=== PATIENT | female | born 1940 | race Caucasian/White ===

== ENCOUNTER 2016-12-08 10:49 | Emergency (ER) | payer MEDICARE ==
[~2016-12-08] VITALS: Ht 160 cm; Wt 61.0 kg
[2016-12-08 10:50] VITALS: BP 174/78; PULSE 60; RESP 20; TEMP 98.6; O2SAT 94
--- NOTE | 2016-12-08 11:14 | PD ---
Physical Exam Time Seen by Provider: 11:11 Narrative 76yo F c/o fast hear rate today. Hx of fast heart; cannot verify diagnosis. Slowed down after took medications. +SOB and dizziness. Denies chest pain. Called doctor and was told to come to ER for evaluation. Patient seen in triage. Awaiting bed placement. VS reviewed. Data Data Last Documented VS Vital Signs Date Time Temp Pulse Resp B/P Pulse Ox O2 Delivery O2 Flow Rate FiO2 12/08/16 10:50 98.6 60 20 174/78 94 Room Air MDM Supervised Visit with GIBSON: Latesha Womack Dec 08, 2016 11:14
[2016-12-08] MEDS ORDERED: METO25TA3 PO (11:33)
[2016-12-08] MEDS ORDERED: PENT400T PO (11:33)
[2016-12-08] MEDS ORDERED: DEXI60CA2 (11:33)
[2016-12-08] MEDS ORDERED: SODIUM CHLORIDE 0.9% FLUSH 10 ML FLUSH IVF PRN (11:45)
[2016-12-08] MEDS ORDERED: SODIUM CHLORID 0.9% 500 ML INJ 500 ML IV ONE (11:45)
--- NOTE | 2016-12-08 11:47 | PD ---
HPI Chief Complaint: Cardiac Complaint Time Seen by Provider: 11:47 Travel History International Travel<30 days: No Contact w/Intl Traveler<30days: No Traveled to known affect area: No History of Present Illness HPI 76-year-old female with a history of hypertension presents to the emergency department for evaluation of feeling as though her heart was racing, lightheadedness and shortness of breath. The patient states that this morning about 3 hours ago she was sitting down drinking tea when she suddenly felt as over her heart began to race. States that she felt lightheaded and short of breath as well. States that she took her metoprolol and about 30 minutes to an hour later her symptoms are completely resolved. She states that this happened at her multiple times in the past. States that she has worn a Holter monitor and been told that it was normal. She denies any chest pain, headache, nausea, vomiting, diaphoresis, abdominal pain, swelling of the extremities, numbness or tingling, weakness, fever, chills, cough or cold symptoms. She called her PCP after this happened and was told to come to the emergency department. No other complaints. PFSH Past Medical History Cerebrovascular Accident: Yes (HTN ) Diabetes: Yes Patient Takes Glucophage: No (12/08/16 0900) Diminished Hearing: No Hypertension: Yes Tetanus Vaccination: Unknown Influenza Vaccination: Yes ?: Not Past Surgical History Surgical History: No Previous Surgery Hysterectomy: Yes Other Surgery: Yes (hernia sx) Social History Alcohol Use: Yes (occ) Tobacco Use: No Substance Use: No Allergies-Medications (Allergen,Severity, Reaction): Coded Allergies: Penicillin (Verified Allergy, Unknown, 12/08/16) Reported Meds & Prescriptions Reported Meds & Active Scripts Active Reported Spironolactone 50 Mg Tab 50 Mg PO DAILY Oxycodone (Oxycodone HCl) 10 Mg Tab 10 Mg PO DAILY Rosuvastatin (Rosuvastatin Calcium) 10 Mg Tab 10 Mg PO HS Metformin ER (Metformin HCl) 1,000 Mg [place] 1,000 Mg PO DAILY With evening meal Aspirin Low Dose (Aspirin) 81 Mg Chew 81 Mg CHEW DAILY Dexilant (Dexlansoprazole) 60 Mg bp Metoprolol Tartrate 25 Mg Tab 25 Mg PO DAILY Pentoxifylline ER (Pentoxifylline) 400 Mg Tab 400 Mg PO DAILY Review of Systems Except as stated in HPI: all other systems reviewed are Neg Physical Exam Narrative GENERAL: Well-nourished and well-developed pleasant female patient in no acute distress who is nontoxic appearing. SKIN: Warm and dry. HEAD: Normocephalic and atraumatic. EYES: No injection, drainage, or hyphema noted. PERRLA. EOMI. ENT: No nasal drainage noted. Oropharynx is clear. NECK: Supple and the trachea is midline. CARDIOVASCULAR: Regular rate and rhythm. RESPIRATORY: Breath sounds are equal bilaterally with no accessory muscle use, wheezing, rhonchi, or crackles. GASTROINTESTINAL: Abdomen is soft, non-tender, and nondistended. MUSCULOSKELETAL: No obvious deformities, swelling, cyanosis, or ecchymosis is present throughout the upper and lower extremities. Patient has full range of motion without any signs of neurovascular compromise. Strength 5/5 upper and lower extremities equal bilaterally. NEUROLOGICAL: Awake, alert, and oriented. Normal speech and gait. Cranial nerves are grossly intact. Data Data Last Documented VS Vital Signs Date Time Temp Pulse Resp B/P Pulse Ox O2 Delivery O2 Flow Rate FiO2 12/08/16 12:57 54 23 117/54 100 Room Air 12/08/16 10:50 98.6 Orders Electrocardiogram (12/08/16 ) Electrocardiogram (12/08/16 11:44) Complete Blood Count With Diff (12/08/16 11:44) Comprehensive Metabolic Panel (12/08/16 11:44) Magnesium (Mg) (12/08/16 11:44) Urinalysis - C+S If Indicated (12/08/16 11:44) Chest, Single Ap (12/08/16 11:44) Ecg Monitoring (12/08/16 11:44) Iv Access Insert/Monitor (12/08/16 11:44) Oximetry (12/08/16 11:44) Sodium Chloride 0.9% Flush (Ns Flush) (12/08/16 11:45) Sodium Chlorid 0.9% 500 Ml Inj (Ns 500 M (12/08/16 11:45) Labs Laboratory Tests Test 12/08/16 12/08/16 11:55 13:08 White Blood Count 5.6 TH/MM3 Red Blood Count 4.81 MIL/MM3 Hemoglobin 14.3 GM/DL Hematocrit 41.7 % Mean Corpuscular Volume 86.7 FL Mean Corpuscular Hemoglobin 29.8 PG Mean Corpuscular Hemoglobin 34.4 % Concent Red Cell Distribution Width 13.2 % Platelet Count 252 TH/MM3 Mean Platelet Volume 7.4 FL Neutrophils (%) (Auto) 70.9 % Lymphocytes (%) (Auto) 16.6 % Monocytes (%) (Auto) 10.6 % Eosinophils (%) (Auto) 1.2 % Basophils (%) (Auto) 0.7 % Neutrophils # (Auto) 4.0 TH/MM3 Lymphocytes # (Auto) 0.9 TH/MM3 Monocytes # (Auto) 0.6 TH/MM3 Eosinophils # (Auto) 0.1 TH/MM3 Basophils # (Auto) 0.0 TH/MM3 CBC Comment DIFF FINAL Differential Comment Sodium Level 139 MEQ/L Potassium Level 4.2 MEQ/L Chloride Level 102 MEQ/L Carbon Dioxide Level 29.6 MEQ/L Anion Gap 7 MEQ/L Blood Urea Nitrogen 14 MG/DL Creatinine 0.88 MG/DL Estimat Glomerular Filtration 62 ML/MIN Rate Random Glucose 93 MG/DL Calcium Level 9.6 MG/DL Magnesium Level 1.8 MG/DL Total Bilirubin 0.3 MG/DL Aspartate Amino Transf 20 U/L (AST/SGOT) Alanine Aminotransferase 17 U/L (ALT/SGPT) Alkaline Phosphatase 77 U/L Total Protein 7.1 GM/DL Albumin 3.4 GM/DL Urine Color YELLOW Urine Turbidity CLEAR Urine pH 5.5 Urine Specific [place] 1.024 Urine Protein TRACE mg/dL Urine Glucose (UA) NEG mg/dL Urine Ketones NEG mg/dL Urine Occult Blood NEG Urine Nitrite NEG Urine Bilirubin NEG Urine Urobilinogen LESS THAN 2.0 MG/DL Urine Leukocyte Esterase LARGE Urine RBC 2 /hpf Urine WBC 5 /hpf Urine Squamous Epithelial 2 /hpf Cells Urine Mucus FEW /lpf Microscopic Urinalysis Comment CULT NOT INDICATED MDM Medical Decision Making Medical Screen Exam Complete: Yes Emergency Medical Condition: Yes Differential Diagnosis Paroxysmal atrial fibrillation versus palpitations versus anxiety versus electrolyte abnormality Narrative Course 76-year-old female presents to the emergency department for evaluation of episode of feeling as though her heart was racing with lightheadedness and shortness of breath. Patient is afebrile, vital signs are stable. Her symptoms were resolved with taking her beta eleni. EKG shows sinus bradycardia with ventricular rate of 54 bpm, no acute ST elevations or depressions. Physical examination is essentially unremarkable. IV access is obtained, labs were drawn and sent. Patient is placed on cardiac telemetry and pulse oximetry monitoring. CBC is unremarkable. CMP is unremarkable. Urinalysis is unremarkable. Chest x-ray is negative. Labs and imaging are reassuring. Patient has remained stable and without complaint while here in the emergency department. I discussed with the patient that she may be experiencing some paroxysmal atrial fibrillation or another arrhythmia as this has happened to her previously. I advised her to follow up as an outpatient with her primary care physician to discuss possibly wearing a Holter monitor again and discussing anticoagulation. Patient verbalizes understanding and agreement with treatment plan. I discussed the case with my attending physician Dr. Rico who is aware of the patients history, physical examination findings, and treatment plan. Diagnosis Primary Impression: Rapid palpitations Referrals: Primary Care Physician Patient Instructions: General Instructions, Palpitations (ED) Additional Instructions: Follow-up with your Primary Care Physician. Return to the ED for any acute worsening of symptoms. Med/Other Pt SpecificInfo: No Change to Meds Disposition: 01 DISCHARGE HOME Condition: Stable Latesha Beltran Dec 08, 2016 11:47
[2016-12-08 12:02] VITALS: O2SAT 98
[2016-12-08] MEDS ORDERED: METF-382 PO (12:08)
[2016-12-08] MEDS ORDERED: ASPI81CH37 CHEW (12:08)
[2016-12-08] MEDS ORDERED: ROSU1TAB6 PO (12:08)
[2016-12-08] MEDS ORDERED: OXYC-395 PO (12:08)
[2016-12-08] MEDS ORDERED: SPIR50TA PO (12:08)
--- NOTE | 2016-12-08 12:11 | RADRPT ---
EXAM DATE/TIME: 12/08/2016 11:44 [facility] COMPARISON: No previous studies available for comparison. INDICATIONS : Chest discomfort; palpitations today. MEDICAL HISTORY : Hypertension. Diabetes mellitus type II. SURGICAL HISTORY : None. ENCOUNTER: Initial ACUITY: 1 day PAIN SCORE: 10 LOCATION: Bilateral chest FINDINGS: Portable AP view of the chest demonstrates a normal-sized cardiac silhouette. No effusion, consolidat ion, or pneumothorax is visualized. Calcified granulomas are present in the right midlung zone and le ft upper lung zone. The bones and soft tissues demonstrate no acute abnormality. There has been prior reverse right shoulder arthroplasty. CONCLUSION: No acute cardiopulmonary abnormality is identified. Morro Santos MD on December 08, 2016 at 12:08 Board Certified Radiologist. This report was verified electronically.
[2016-12-08 12:12] LABS: BASOPHIL % 0.7 % (0.0-2.0); EOSINOPHIL # 0.1 TH/MM3 (0-0.4); EOSINOPHIL % 1.2 % (0.0-4.0); HEMATOCRIT 41.7 % (35.0-46.0); HEMO FLAGS DIFF FINAL; LYMPH % 16.6 % (9.0-44.0); LYMPHOCYTE # 0.9 TH/MM3 (1.0-4.8); MEAN CELL VOLUME 86.7 FL (80.0-100.0); MEAN CORPUSCULAR HEMOGLOBIN 29.8 PG (27.0-34.0); MEAN CORPUSCULAR HGB CONC 34.4 % (32.0-36.0); MONO % 10.6 % (0.0-8.0); NEUT % 70.9 % (16.0-70.0); PLATELET COUNT 252 TH/MM3 (150-450); RED BLOOD COUNT 4.81 MIL/MM3 (4.00-5.30); RED CELL DISTRIBUTION WIDTH 13.2 % (11.6-17.2); WHITE BLOOD COUNT 5.6 TH/MM3 (4.0-11.0)
[2016-12-08 12:34] LABS: ALKALINE PHOSPHATASE 77 U/L (45-117); TOTAL BILIRUBIN ADULT 0.3 MG/DL (0.2-1.0)
[2016-12-08 12:38] LABS: ALT (GPT) 17 U/L (10-53); ANION GAP 7 MEQ/L (5-15); AST (GOT) 20 U/L (15-37); BICARBONATE 29.6 MEQ/L (21.0-32.0); BLOOD UREA NITROGEN 14 MG/DL (7-18); CHLORIDE 102 MEQ/L (98-107); GLOMERULAR FILTRATION RATE 62 ML/MIN (>89); MAGNESIUM 1.8 MG/DL (1.5-2.5); POTASSIUM 4.2 MEQ/L (3.5-5.1); SODIUM (NA) 139 MEQ/L (136-145)
[2016-12-08 12:57] VITALS: BP 117/54; PULSE 54; RESP 23; O2SAT 100
[2016-12-08 13:22] LABS: BLOOD, URINE NEG (NEG); COMMENT (UR) CULT NOT INDICATED; CULTURE IF INDICATED CULT NOT INDICATED; GLUCOSE,URINE NEG (NEG); KETONE, URINE NEG (NEG); MUCUS URINE FEW /lpf (OCC); NITRITE,URINE NEG (NEG); PH, URINE 5.5 (5.0-8.5); SQUAMOUS EPITHELIAL CELL URINE 2 /hpf (0-5); URINE COLOR YELLOW (YELLW/STRAW)
--- NOTE | 2016-12-09 16:50 | EKG ---
Date Performed: 12/08/2016 Time Performed: 12:04:33 PTAGE: 76 years EKG: SINUS BRADYCARDIA BORDERLINE ECG NO PREVIOUS TRACING DOCTOR: Chalino Orozco Interpretating Date/Time 12/09/2016 16:47:59
== END 2016-12-08 14:12 | disposition home or self-care (01) ==
LOC: NEPE 10:49
DX: R00.2 Palpitations (principal); R42 Dizziness and giddiness; R06.02 Shortness of breath; R00.1 Bradycardia, unspecified; I10 Essential (primary) hypertension; E11.9 Type 2 diabetes mellitus without complications; Z79.899 Other long term (current) drug therapy; Z79.82 Long term (current) use of aspirin
CPT/HCPCS: 71010; 80053; 81001; 83735; 85025; 93005; 96360; 99285; J7040

== ENCOUNTER 2017-04-10 09:17 | Emergency (ER) | payer MEDICARE ==
[~2017-04-10] VITALS: Ht 160 cm; Wt 60.0 kg
[~2017-04-10 09:17] MED LIST: ASPI81CH6 CHEW; DEXI60CA3; METF-382 PO; METO25TA3 PO; OXYC-395 PO; PENT400T PO; ROSU1TAB6 PO; SPIR50TA PO
[2017-04-10] MEDS ORDERED: IOHEXOL 350 MG/ML 10 ML VIAL (for RAD DIAG) IVCONTRAST ONE (09:18)
[2017-04-10 09:19] VITALS: BP 131/94; PULSE 84; RESP 13; TEMP 98.1; O2SAT 97
[2017-04-10 09:24] VITALS: BP 117/69; TEMP 98.1; O2SAT 100
[2017-04-10 09:46] LABS: BACTERIA, URINE RARE /hpf; BLOOD, URINE NEG (NEG); COMMENT (UR) CULT NOT INDICATED; CULTURE IF INDICATED CULT NOT INDICATED; GLUCOSE,URINE NEG (NEG); KETONE, URINE NEG (NEG); MUCUS URINE FEW /lpf (OCC); NITRITE,URINE NEG (NEG); PH, URINE 5.5 (5.0-8.5); SQUAMOUS EPITHELIAL CELL URINE 1 /hpf (0-5); TRANSITIONAL EPI CELLS, URINE <1 /hpf; URINE COLOR YELLOW (YELLW/STRAW)
--- NOTE | 2017-04-10 10:07 | PD ---
HPI Chief Complaint: Complaint Time Seen by Provider: 10:03 Travel History International Travel<30 days: No Contact w/Intl Traveler<30days: No Traveled to known affect area: No History of Present Illness HPI 76-year-old female complains of low abdominal and pelvic discomfort and urinary frequency. Patient states that the symptoms started this about 6 months ago and got worse recently. Patient was seen by personal physician this week and was given prescription for Bactrim DS. Patient states that she had the rash for Bactrim DS. Patient was advised by her physician to stop Bactrim DS and started on Macrodantin. Patient states that she is to have discomfort pressure pain lower abdomen pelvic area and urinary frequency. Patient denies any dysuria. Patient denies any back pain or fever chills. Patient denies any vaginal discharge. Patient states that she has intermittent nausea vomiting. Patient denies any headache. Patient denies any chest pain or shortness of breath. PFSH Past Medical History Arthritis: Yes (CHRONIC PAIN R/T R. SHOULDER) Cerebrovascular Accident: Yes (HTN ) Diabetes: Yes Patient Takes Glucophage: Yes (04/10/17) Diminished Hearing: No Hypertension: Yes Insomnia: Yes Tetanus Vaccination: Unknown Influenza Vaccination: Yes ?: Not : 2 Para: 2 Miscarriage: 0 : 0 Past Surgical History Gynecologic Surgery: Yes (HYSTERECTOMY) Hysterectomy: Yes Other Surgery: Yes (HIATAL HERNIA REPAIR) Social History Alcohol Use: Yes (RARELY) Tobacco Use: No Substance Use: No Allergies-Medications (Allergen,Severity, Reaction): Coded Allergies: Sulfa (Sulfonamide Antibiotics) (Verified Allergy, Unknown, RASH/ITCHING, 04/10/17) penicillin G (Unverified Allergy, Unknown, 01/27/17) nitrofurantoin (Verified Adverse Reaction, Intermediate, VOMITING, ) Reported Meds & Prescriptions Reported Meds & Active Scripts Active Reported Spironolactone 50 Mg Tab 50 Mg PO DAILY Oxycodone (Oxycodone HCl) 10 Mg Tab 10 Mg PO DAILY Rosuvastatin (Rosuvastatin Calcium) 10 Mg Tab 10 Mg PO HS Metformin ER (Metformin HCl) 1,000 Mg [place] 1,000 Mg PO DAILY With evening meal Aspirin Low Dose (Aspirin) 81 Mg Chew 81 Mg CHEW DAILY Dexilant (Dexlansoprazole) 60 Mg Cap.dr.bp Metoprolol Tartrate 25 Mg Tab 25 Mg PO DAILY Pentoxifylline ER (Pentoxifylline) 400 Mg Tab 400 Mg PO DAILY Review of Systems General / Constitutional: No: Fever Eyes: No: Visual changes HENT: No: Headaches Cardiovascular: No: Chest Pain or Discomfort Respiratory: No: Shortness of Breath Gastrointestinal: Positive: Abdominal Pain Genitourinary: Positive: Frequency, No: Dysuria Musculoskeletal: No: Pain Skin: No Rash Neurologic: No: Weakness Psychiatric: No: Depression Endocrine: No: Polydipsia Hematologic/Lymphatic: No: Easy Bruising Physical Exam Narrative GENERAL: Well-nourished, well-developed patient. SKIN: Focused skin assessment warm/dry. HEAD: Normocephalic. EYES: No scleral icterus. No injection or drainage. NECK: Supple, trachea midline. No JVD or lymphadenopathy. CARDIOVASCULAR: Regular rate and rhythm without murmurs, gallops, or rubs. RESPIRATORY: Breath sounds equal bilaterally. No accessory muscle use. GASTROINTESTINAL: Abdomen soft, nondistended. Mild tenderness on palpation lower abdomen suprapubic area. No rebound tenderness. No mass. MUSCULOSKELETAL: No cyanosis, or edema. BACK: Nontender without obvious deformity. No CVA tenderness. Neurologic exam normal. Data Data Last Documented VS Vital Signs Date Time Temp Pulse Resp B/P (MAP) Pulse Ox O2 Delivery O2 Flow Rate FiO2 04/10/17 11:00 66 16 127/60 (82) 98 Room Air 04/10/17 09:19 98.1 Orders Orders Urinalysis - C+S If Indicated (04/10/17 09:27) Complete Blood Count With Diff (04/10/17 10:03) Comprehensive Metabolic Panel (04/10/17 10:03) Ct Abd/Pel W Iv Contrast(Rout) (04/10/17 10:03) Iv Access Insert/Monitor (04/10/17 10:03) Ecg Monitoring (04/10/17 10:03) Oximetry (04/10/17 10:03) Sodium Chloride 0.9% Flush (Ns Flush) (04/10/17 10:15) Lorazepam Inj (Ativan Inj) (04/10/17 10:30) Iohexol 350 Inj (Omnipaque 350 Inj) (04/10/17 09:18) Labs Laboratory Tests Test 04/10/17 09:30 04/10/17 10:15 Urine Color YELLOW Urine Turbidity CLEAR Urine pH 5.5 Urine Specific [place] 1.018 Urine Protein TRACE mg/dL Urine Glucose (UA) NEG mg/dL Urine Ketones NEG mg/dL Urine Occult Blood NEG Urine Nitrite NEG Urine Bilirubin NEG Urine Urobilinogen 2.0 MG/DL Urine Leukocyte Esterase SMALL Urine RBC 1 /hpf Urine WBC 1 /hpf Urine Squamous Epithelial Cells 1 /hpf Urine Transitional Epithelial Cells <1 /hpf Urine Bacteria RARE /hpf Urine Mucus FEW /lpf Microscopic Urinalysis Comment CULT NOT INDICATED White Blood Count 5.0 TH/MM3 Red Blood Count 5.15 MIL/MM3 Hemoglobin 15.1 GM/DL Hematocrit 45.0 % Mean Corpuscular Volume 87.4 FL Mean Corpuscular Hemoglobin 29.4 PG Mean Corpuscular Hemoglobin Concent 33.6 % Red Cell Distribution Width 13.0 % Platelet Count 261 TH/MM3 Mean Platelet Volume 6.9 FL Neutrophils (%) (Auto) 68.7 % Lymphocytes (%) (Auto) 20.0 % Monocytes (%) (Auto) 9.8 % Eosinophils (%) (Auto) 0.9 % Basophils (%) (Auto) 0.6 % Neutrophils # (Auto) 3.4 TH/MM3 Lymphocytes # (Auto) 1.0 TH/MM3 Monocytes # (Auto) 0.5 TH/MM3 Eosinophils # (Auto) 0.0 TH/MM3 Basophils # (Auto) 0.0 TH/MM3 CBC Comment DIFF FINAL Differential Comment Blood Urea Nitrogen 11 MG/DL Creatinine 0.94 MG/DL Random Glucose 98 MG/DL Total Protein 7.1 GM/DL Albumin 3.9 GM/DL Calcium Level 9.7 MG/DL Alkaline Phosphatase 67 U/L Aspartate Amino Transf (AST/SGOT) 21 U/L Alanine Aminotransferase (ALT/SGPT) 19 U/L Total Bilirubin 0.5 MG/DL Sodium Level 136 MEQ/L Potassium Level 4.0 MEQ/L Chloride Level 102 MEQ/L Carbon Dioxide Level 23.8 MEQ/L Anion Gap 10 MEQ/L Estimat Glomerular Filtration Rate 58 ML/MIN MDM Medical Decision Making Medical Screen Exam Complete: Yes Emergency Medical Condition: Yes Interpretation(s) Last Impressions Abdomen/Pelvis CT 04/10/17 1003 Signed Impressions: Service Date/Time: Monday, April 10, 2017 11:57 - CONCLUSION: 1. Mild diverticulosis with no inflammatory change or obstruction. 2. Small hiatal hernia. 3. Multiple calcified splenic granulomas. 4. Bilateral renal cysts. 5. Unremarkable gallbladder. 6. Postsurgical changes status post hernia repair with no recurrent hernia. Jonathan Reyes MD 12:28 PM. CBC within normal limit. CMP within normal limit. UA is negative. Differential Diagnosis Differential diagnosis including urethritis, UTI, bladder spasm, nephrolithiasis , colitis. Narrative Course 76-year-old female with persistent low abdominal pelvic pain and urinary frequency. Diagnosis Primary Impression: Urinary frequency Patient Instructions: General Instructions Additional Instructions: Patient may stop taking antibiotic. Take medications as directed. Follow-up with personal physician and urologist. Return if worse. Med/Other Pt SpecificInfo: Prescription(s) given Scripts Ondansetron Odt (Zofran Odt) 4 Mg Tab 4 MG SL Q6HR Y for Nausea/Vomiting, #12 TAB 0 Refills Prov: Avery Gonzalez MD 04/10/17 Oxybutynin (Ditropan) 5 Mg Tab 5 MG PO Q12HR for Urinary Symptom Managemen, #20 TAB 0 Refills Prov: Avery Gonzalez MD 04/10/17 Disposition: 01 DISCHARGE HOME Condition: Stable Avery Gonzalez MD Apr 10, 2017 10:07
[2017-04-10] MEDS ORDERED: SODIUM CHLORIDE 0.9% FLUSH 10 ML FLUSH IV FLUSH PRN (10:15)
[2017-04-10] MEDS ORDERED: LORazepam 2 MG/ML VIAL IV PUSH ONE (10:30)
[2017-04-10 10:31] LABS: AUTOMATED NEUTROPHIL # 3.4 TH/MM3 (1.8-7.7); BASOPHIL % 0.6 % (0.0-2.0); EOSINOPHIL % 0.9 % (0.0-4.0); HEMO FLAGS DIFF FINAL; MEAN CELL VOLUME 87.4 FL (80.0-100.0); MEAN CORPUSCULAR HEMOGLOBIN 29.4 PG (27.0-34.0); MEAN CORPUSCULAR HGB CONC 33.6 % (32.0-36.0); MONO % 9.8 % (0.0-8.0); NEUT % 68.7 % (16.0-70.0); PLATELET COUNT 261 TH/MM3 (150-450); RED BLOOD COUNT 5.15 MIL/MM3 (4.00-5.30)
[2017-04-10 10:46] LABS: ALT (GPT) 19 U/L (10-53)
[2017-04-10 10:49] LABS: ALKALINE PHOSPHATASE 67 U/L (45-117); TOTAL BILIRUBIN ADULT 0.5 MG/DL (0.2-1.0)
[2017-04-10 10:50] LABS: ANION GAP 10 MEQ/L (5-15); AST (GOT) 21 U/L (15-37); BICARBONATE 23.8 MEQ/L (21.0-32.0); BLOOD UREA NITROGEN 11 MG/DL (7-18); CHLORIDE 102 MEQ/L (98-107); GLOMERULAR FILTRATION RATE 58 ML/MIN (>89); SODIUM (NA) 136 MEQ/L (136-145)
[2017-04-10 11:00] VITALS: BP 127/60; PULSE 66; RESP 16; O2SAT 98
--- NOTE | 2017-04-10 12:18 | RADRPT ---
EXAM DATE/TIME: 04/10/2017 11:57 [facility] COMPARISON: No previous studies available for comparison. INDICATIONS : Lower abdominal, pelvic pain. IV CONTRAST: 58 cc Omnipaque 350 (iohexol) IV ORAL CONTRAST: No oral contrast ingested. RADIATION DOSE: 6.72 CTDIvol (mGy) MEDICAL HISTORY : Hypertension. Diabetes mellitus type 2. Stroke. SURGICAL HISTORY : Hysterectomy. ENCOUNTER: Initial ACUITY: 2 days PAIN SCALE: 5/10 LOCATION: Bilateral lower quadrant TECHNIQUE: Volumetric scanning of the abdomen and pelvis was performed. Using automated exposure control and ad justment of the mA and/or kV according to patient size, radiation dose was kept as low as reasonably achievable to obtain optimal diagnostic quality images. DICOM format image data is available electro nically for review and comparison. FINDINGS: LOWER LUNGS: The visualized lower lungs are clear. There is a small retrocardiac hiatal hernia. LIVER: Homogeneous density without lesion. There is no dilation of the biliary tree. No calcified gallston es. SPLEEN: Normal size without lesion. There are multiple small calcified granulomas. PANCREAS: Within normal limits. KIDNEYS: Normal in size and shape. There is no solid mass, stone or hydronephrosis. There is a small simple c yst in the right kidney and large simple cyst in the left kidney. ADRENAL GLANDS: Adrenal glands are thickened bilaterally with no distinct focal lesion. VASCULAR: There is no aortic aneurysm. BOWEL/MESENTERY: There is a small hiatal hernia. The stomach, small bowel, and colon demonstrate no acute abnormality. There is no free intraperitoneal air or fluid. There multiple diverticuli greatest in the sigmoid c olon with no inflammatory change. ABDOMINAL WALL: Post surgical changes are noted along the lower right anterior abdominal wall with no recurrent herni a. RETROPERITONEUM: There is no lymphadenopathy. BLADDER: No wall thickening or mass. REPRODUCTIVE: Within normal limits. INGUINAL: There is no lymphadenopathy or hernia. MUSCULOSKELETAL: Within normal limits for patient age. CONCLUSION: 1. Mild diverticulosis with no inflammatory change or obstruction. 2. Small hiatal hernia. 3. Multiple calcified splenic granulomas. 4. Bilateral renal cysts. 5. Unremarkable gallbladder. 6. Postsurgical changes status post hernia repair with no recurrent hernia. Jonathan Reyes MD on April 10, 2017 at 12:14 Board Certified Radiologist. This report was verified electronically.
[2017-04-10] MEDS ORDERED: ZOFR4TAB3 SL (12:36)
[2017-04-10] MEDS ORDERED: OXYB5TAB8 PO (12:36)
== END 2017-04-10 13:06 | disposition home or self-care (01) ==
LOC: NEPD 09:17
DX: R35.0 Frequency of micturition (principal); K57.90 Diverticulosis of intestine, part unspecified, without perforation or abscess without bleeding; K44.9 Diaphragmatic hernia without obstruction or gangrene; N20.0 Calculus of kidney; M19.011 Primary osteoarthritis, right shoulder; I10 Essential (primary) hypertension; E11.9 Type 2 diabetes mellitus without complications; Z86.73 Personal history of transient ischemic attack (TIA), and cerebral infarction without residual deficits; Z79.82 Long term (current) use of aspirin
CPT/HCPCS: 74177; 80053; 81001; 85025; 96374; 99285; J2060; Q9967